=== PATIENT | male | born 1970 | race Caucasian/White ===

== ENCOUNTER 2018-03-19 14:43 | Observation (INO) ==
[2018-03-19] MEDS ORDERED: Ketorolac 30 MG/ML VIAL IVP PRN (17:24)
--- NOTE | 2018-03-19 19:11 | Internal Med History&Physical ---
Date of Encounter: 03/19/18 Time of Encounter: 17:00 Internal Medicine - H&P: HPI Chief complaint: Epigastric pain Admitted From: Home Plans for Post Hospital Care: Home History of present illness: Patient is a 47-year-old male with past medical history significant for IV drug abuse and hypertension who presents from outside ER due to epigastric pain. Patient reports that his pain is located in the epigastric region and describes as sharp, worse with lying down and inspiration with no relieving factors. Patient denies any radiation of the pain or any associated symptoms. In the ER, first set of cardiac biomarkers are negative. Patient was transferred from [facility] for ACS rule out. Past Med Surg Social Fam HX - Past Medical History Medical history: cirrhosis, hypertension, other Psychiatric history: no psych history - Past Surgical History Surgical History: no surgical history - Social History Smoking Status: Current every day smoker Smokeless Tobacco Status: No Alcohol use: occasionally Drug use: none - Family History Sister Living Status: Hx Family Cancer: Yes Internal Medicine - H&P: Meds amLODIPine [Norvasc] 5 mg PO DAILY 10/23/16 [History] hydroCHLOROthiazide [Hydrochlorothiazide] 25 mg PO DAILY 10/23/16 [History] 3 Allergy/AdvReac Type Severity Reaction Status Date / Time No Known Allergies Allergy Verified 01/11/17 19:32 All Systems PM: A 10-system review of systems was performed and is negative for pertinent findings except as documented above in the HPI. - Constitutional Vitals: Temp Pulse Resp BP Pulse Ox 99.3 F 84 16 105/55 99 03/19/18 19:06 03/19/18 19:06 03/19/18 19:06 03/19/18 19:06 03/19/18 19:06 General appearance: Present: A&O X 3, no acute distress - Eye Eye exam: Present: normal appearance - ENT ENT exam: Present: mucous membranes moist - Respiratory Respiratory exam: Present: CTAB. Absent: accessory muscle use, rales, rhonchi, wheezes - Cardiovascular Cardiovascular exam: Present: RRR, +S1, +S2. Absent: diastolic murmur, gallop, rubs, systolic murmur - GI/Abdominal GI/Abdominal exam: Present: soft, tenderness (Epigastric tenderness to palpation ) - Extremities Exam Extremities exam: Absent: pedal edema - Neurological Exam Neurological exam: Present: oriented X3. Absent: no focal deficits - Psychiatric Psychiatric exam: Present: normal mood - Skin Skin exam: Present: normal color - Assessment and plan (1) Chest pain Current Visit: No Status: Acute Assessment and plan: Patient does not report of chest pain but epigastric pain that was sent over for ACS rule out Will trend cardiac biomarkers and monitor on telemetry Will also order stress test for the a.m. her ACS rule out Qualifiers: Chest pain type: other chest pain Qualified Code(s): R07.89 - Other chest pain; R07.8 - Other chest pain (2) HTN (hypertension), benign Current Visit: Yes Status: Acute Assessment and plan: Controlled; continue home medications (3) History of intravenous drug abuse Current Visit: Yes Status: Acute Assessment and plan: Caution with pain medications (4) DVT prophylaxis Current Visit: Yes Status: Acute Assessment and plan: Subcutaneous heparin - Time Spent With Patient Total time spent is greater than 50% in coordination of care (as documented) at patient's floor/unit and/or counseling patient:
[2018-03-19] MEDS ORDERED: Naloxone 0.4 MG/ML INJ IVP PRN (19:15)
[2018-03-19 20:24] LABS: Albumin 3.9 g/dL (3.5-5.7); Albumin/Globulin Ratio 1.2 (1.1-2.2); Bilirubin,Direct 0.1 mg/dL (0.0-0.2); Bilirubin,Indirect 0.4 mg/dL (0.0-1.2); Bilirubin,Total 0.5 mg/dL (0.3-1.0); Globulin 3.3 g/dL (2.4-3.5); Total Protein 7.2 g/dL (6.4-8.9)
[2018-03-19] MEDS ORDERED: Isovue-370 500 ML INFUS..BTL IV ONE (21:11)
--- NOTE | 2018-03-19 21:57 | Event Note ---
Date of Encounter: 03/19/18 Time of Encounter: 21:05 Alerted by pts. nurse ELISA Parra that pt. was complaining of 10/10 epigastric pain and SOB. Went to examine pt. who was sitting upright in bed and SOB/ dyspneic. Pt. stated sx began this morning and have not resolved. Concern for PE. CTA of chest done at [facility] which showed artifact limits evaluation of the distal pulmonary arteries. No evidence of central pulmonary embolism or right heart strain. No evidence of acute process in the chest. Minimal emphysematous changes. D/t artifact, contacted [facility] for clarification on imaging for more definitive r/o for PE. Spoke with Dr. Hernandez who re-evaluated the imaging and determined that the probability of PE to be low, especially based on the pts. current dyspnea which would warrant a noticeable abnormality on imaging. Dr. Hernandez did note on image 38 a right hilar lymph node. Stat D-dimer ordered which showed 989. Stat Dopplers of bilateral LEs ordered to r/o DVT(s). D/t pts. epigastric pain, GI cocktail and IVP Protonix 40 mg BID ordered with both to be administered now. Will change pts. O2 from NC to oxy mask. Pt. also has hx of IV drug abuse, so stat urine tox screen ordered to r/o possible recent drug abuse and/or withdrawal. Pt. will continue to be monitored closely for signs of respiratory and/or cardiac distress. Will await lab results.
[2018-03-19] MEDS: Pantoprazole 40 MG VIAL IVP SCH (22:10)
[2018-03-19] MEDS ORDERED: GI Cocktail 40 ML EACH PO ONE (22:14)
[2018-03-20 00:13] LABS: Amphetamine Screen,Urine Positive ng/mL (Cutoff=1000); Barbiturate Screen,Urine Negative ng/mL (Cutoff=200); Benzodiazepines Screen,Urine Positive ng/mL (Cutoff=200); Cannabinoid Screen,Urine Negative ng/mL (Cutoff = 50); Cocaine Screen,Urine Negative ng/mL (Cutoff= 300); Opiate Screen,Urine Negative ng/mL (Cutoff=300); Phencyclidine Screen,Urine Negative ng/mL (Cutoff=25)
[2018-03-20] MEDS ORDERED: *HR* OxyCODONE/APAP 5/325 TABLET PO ONE (00:59)
[2018-03-20 02:01] LABS: Basophils % 0.5 %; Eosinophils # 0.2 K/mcL (0.0-0.6); Hematocrit 38.5 % (37.5-50.1); Hemoglobin 13.7 g/dL (12.9-16.9); Immature Granulocytes % 0.4 % (0-4); Lymphocytes # 2.3 K/mcL (0.6-4.6); Lymphocytes % 28.1 %; Mean Corpuscular HGB Conc 35.6 g/dL (31.6-35.5); Mean Corpuscular Hemoglobin 30.4 pg (28.0-33.3); Mean Corpuscular Volume 85.6 fL (83.0-100.0); Mean Platelet Volume 10.9 fL (9.4-12.4); Monocytes # 0.9 K/mcL (0.0-1.3); Monocytes % 11.4 %; Neutrophils # 4.7 K/mcL (1.6-8.9); Nucleated Red Blood Cells 0.2 /100 WBC (0); Platelet Count 208 K/mcL (140-400); Red Cell Distribution Width 12.4 % (11.5-14.5); Segmented Neutrophils % 57.6 %
[2018-03-20 02:03] LABS: BUN/Creatinine Ratio 23 (6-26); Blood Urea Nitrogen 17 mg/dL (6-20); Calcium 8.8 mg/dL (8.6-10.3); Carbon Dioxide 22 mEq/L (23-29); Chloride 104 mEq/L (98-107); Glucose 140 mg/dL (70-105); Osmolality,Calculated 278 (280-300); Potassium 3.8 mEq/L (3.5-5.1); Sodium 132 mEq/L (136-145); eGFR For African Americans > 60 (> 60); eGFR For Non-African Americans > 60 (> 60)
[2018-03-20] MEDS ORDERED: Isovue-370 500 ML INFUS..BTL IV ONE (07:36)
[2018-03-20] MEDS ORDERED: Acetaminophen 325 MG TABLET PO PRN (08:44)
[2018-03-20] MEDS: Pantoprazole 40 MG VIAL IVP SCH ×2 (09:30→21:11)
[2018-03-20] MEDS ORDERED: Ketorolac 30 MG/ML VIAL IVP ONE (10:01)
[2018-03-20] MEDS ORDERED: Azithromycin 500 MG in D5% in Water 250 ML IVPB SCH (11:00)
[2018-03-20] MEDS: Ipratropium/Albuterol Neb 3 ML IH SCH ×4 (11:22→23:32)
[2018-03-20] MEDS: cefTRIAXone 1,000 MG in Water for inj. (sterile) 20 ML 10 ML IVP SCH (12:10)
[2018-03-20] MEDS: 0.9 % Sodium Chloride 1,000 ML IVC SCH ×2 (12:10→23:43)
[2018-03-20] MEDS ORDERED: Ketorolac 30 MG/ML VIAL IVP PRN (12:37)
--- NOTE | 2018-03-20 14:31 | Internal Med Progress Note ---
Date of Encounter: 03/20/18 Time of Encounter: 09:35 - Assessment and plan (1) Chest pain Current Visit: Yes Status: Acute Assessment and plan: Patient reports right anterior inferior chest pain and SOB. Pt reports pain increases with inspiration, lying in a supine position, and movement. Pain is not reproducible with palpation. Patient is obviously uncomfortable. Troponins are negative 3. Elevated d-dimer. Chest CTA shows no evidence of PE , new bibasilar infiltrates are identified, greater on the right which may represent atelectasis versus pneumonia. There are no small mediastinal and bilateral hilar lymph nodes noted, likely reactive. Additionally there are left axillary lymph nodes which are also likely reactive. Patient is being treated for community-acquired pneumonia. Stress test was held today due to patient's inability to lie still and in a supine position. If patient has resolution of chest pain with antibiotics and symptomatic treatment, we will not do stress test. Patient has no leukocytosis, no fever, no tachycardia. Blood pressure is stable. He is requiring supplemental oxygen at 2 and 3 L via Oxymizer mask. Patient has no prior history of oxygen use. Continue telemetry Continue 02 as needed to maintain sats > 92% Continue IV antibiotics, bronchodilators, and IV steroids Monitor labs and vitals signs. Pain control Qualifiers: Chest pain type: other chest pain Qualified Code(s): R07.89 - Other chest pain; R07.8 - Other chest pain (2) HTN (hypertension), benign Current Visit: Yes Status: Chronic Assessment and plan: Well controlled. Pt takes HCTZ at home, continue. (3) History of intravenous drug abuse Current Visit: Yes Status: Acute Assessment and plan: Caution with pain medications Urine drug screen positive for Benzodiazepines and amphetamines, neither of which are prescribed to pt. (4) DVT prophylaxis Current Visit: Yes Status: Acute Assessment and plan: Subcutaneous Lovenox. Encourage ambulation and up to chair. (5) Pneumonia Current Visit: Yes Status: Acute Assessment and plan: Plan as above. Community acquired pneumonia, likely bacterial. Blood and sputum cultures ordered and pending. Urine antigens ordered and pending. Qualifiers: Pneumonia type: due to unspecified organism Laterality: bilateral Lung location: lower lobe of lung Qualified Code(s): J18.1 - Lobar pneumonia, unspecified organism - Time Spent With Patient Total time spent is greater than 50% in coordination of care (as documented) at patient's floor/unit and/or counseling patient: less than 15 minutes - Subjective Interval history: Pt was seen and assessed at bedside at 0925. He was obviously uncomfortable and reports right low anterior chest wall pain. He states that pain increases with movement and inspiration, not with palpation. Pt wearing oxygen. Denies headache , n/v/d, abdominal pain, vision changes. - Constitutional Vitals: Temp Pulse Resp BP Pulse Ox 98.2 F 82 18 103/68 99 03/20/18 11:27 03/20/18 11:27 03/20/18 11:27 03/20/18 11:27 03/20/18 11:27 General appearance: Present: cooperative, A&O X 3, severe distress - Head Head exam: Present: atraumatic, normal inspection, normocephalic - Eye Eye exam: Present: normal appearance, conjuntiva pink, sclera anicteric - Neck Neck exam general surgery: Present: supple, trachea midline. Absent: lymphadenopathy, tenderness - Respiratory Respiratory exam: Present: decreased breath sounds, CTAB, wheezes. Absent: accessory muscle use, chest wall tenderness, rales, rhonchi - Cardiovascular Cardiovascular exam: Present: RRR, +S1, +S2, tachycardia. Absent: bradycardia, diastolic murmur, gallop, rubs, systolic murmur - GI/Abdominal GI/Abdominal exam: Present: normal bowel sounds, soft. Absent: distended, hepatomegaly, tenderness - Extremities Exam Extremities exam: Present: normal capillary refill, normal inspection, warm, radial pulses palpable and symmetrical. Absent: calf tenderness, cyanotic, pedal edema - Neurological Exam Neurological exam: Present: alert, oriented X3, no focal deficits. Absent: facial droop, speech deficit - Skin Skin exam: Present: dry, intact, normal color, warm. Absent: rash Internal Medicine: Result - Labs CBC & Chem 7: 03/20/18 01:14 03/20/18 01:14 Labs: Short CBC 03/20/18 Range/Units 01:14 WBC 8.2 (4.3-11.1) K/mcL Hgb 13.7 (12.9-16.9) g/dL Hct 38.5 (37.5-50.1) % Plt Count 208 (140-400) K/mcL Neutrophils # 4.7 (1.6-8.9) K/mcL BMP 03/20/18 01:14 Sodium 132 L Potassium 3.8 Chloride 104 Carbon Dioxide 22 L BUN 17 Creatinine 0.74 Glucose 140 H Calcium 8.8 Cardiac Enzymes 03/19/18 03/20/18 03/20/18 Range/Units 19:33 01:14 07:48 Troponin I < 0.03 < 0.03 < 0.03 (< 0.04) ng/mL Liver Function 03/19/18 Range/Units 19:33 Total Bilirubin 0.5 (0.3-1.0) mg/dL Direct Bilirubin 0.1 (0.0-0.2) mg/dL AST 14 (13-39) Units/L ALT 11 (7-52) Units/L Alkaline Phosphatase 103 (34-104) Units/L Albumin 3.9 (3.5-5.7) g/dL - ABG Interpretation ABG results: PT/INR, D-dimer D-Dimer 989 ng/mLFEU (0-500) H 03/19/18 22:09 - Impressions Impressions Chest CTA 03/20/18 07:36 IMPRESSION: No evidence of pulmonary embolism. New bibasilar infiltrates are identified greater on the right which may represent atelectasis versus pneumonia. Small mediastinal and bilateral hilar lymph nodes are identified likely reactive in nature. Additional left axillary lymph nodes are likely reactive. D/ / 03/20/2018 09:34:28 Isaac Odonnell MD / clint Interpreting Provider: Isaac Odonnell MD Consult Discharge Plan - Plan Referrals: Harry Ricketts MD [Primary Care Provider] -
[2018-03-20] MEDS: Nicotine 21 MG PATCH.TD24 TD SCH (18:12)
[2018-03-20] MEDS: *HR* OxyCODONE/APAP 5/325 TABLET PO PRN (21:11)
[2018-03-21] MEDS: Beer can PO SCH ×3 (00:52→13:05)
[2018-03-21] MEDS: Ipratropium/Albuterol Neb 3 ML IH SCH ×4 (03:44→15:40)
[2018-03-21] MEDS: *HR* OxyCODONE/APAP 5/325 TABLET PO PRN (04:19)
[2018-03-21 05:19] LABS: Basophils % 0.5 %; Eosinophils # 0.2 K/mcL (0.0-0.6); Eosinophils % 2.8 %; Hematocrit 39.1 % (37.5-50.1); Hemoglobin 13.1 g/dL (12.9-16.9); Immature Granulocytes % 0.4 % (0-4); Lymphocytes % 23.5 %; Mean Corpuscular HGB Conc 33.5 g/dL (31.6-35.5); Mean Corpuscular Hemoglobin 29.2 pg (28.0-33.3); Mean Corpuscular Volume 87.3 fL (83.0-100.0); Monocytes # 0.5 K/mcL (0.0-1.3); Monocytes % 6.2 %; Neutrophils # 5.7 K/mcL (1.6-8.9); Platelet Count 211 K/mcL (140-400); Red Blood Count 4.48 M/mcL (4.19-5.50); Red Cell Distribution Width 12.8 % (11.5-14.5); Segmented Neutrophils % 66.6 %
[2018-03-21 05:43] LABS: BUN/Creatinine Ratio 13 (6-26); Blood Urea Nitrogen 10 mg/dL (6-20); Calcium 8.7 mg/dL (8.6-10.3); Carbon Dioxide 23 mEq/L (23-29); Chloride 108 mEq/L (98-107); Glucose 138 mg/dL (70-105); Osmolality,Calculated 287 (280-300); Potassium 3.6 mEq/L (3.5-5.1); Sodium 138 mEq/L (136-145); eGFR For African Americans > 60 (> 60); eGFR For Non-African Americans > 60 (> 60)
[2018-03-21] MEDS ORDERED: *HR* Enoxaparin 40 MG/0.4 ML SYRINGE SQ SCH (07:00)
[2018-03-21] MEDS: cefTRIAXone 1,000 MG in Water for inj. (sterile) 20 ML 10 ML IVP SCH (08:13)
[2018-03-21] MEDS: Pantoprazole 40 MG VIAL IVP SCH (08:14)
[2018-03-21] MEDS: Nicotine 21 MG PATCH.TD24 TD SCH (13:05)
[2018-03-21 15:24] VITALS: BP 147/94
--- NOTE | 2018-03-21 16:12 | Internal Med Progress Note ---
Date of Encounter: 03/21/18 Time of Encounter: 10:05 - Assessment and plan (1) Chest pain Current Visit: Yes Status: Acute Assessment and plan: Patient reports that pain is significantly better today. He is not requiring additional pain medication, but states that pain is still located in the right inferior anterior chest. Continue to treat for pneumonia (CAP) as described below. Stress test was held today due to nicotine patch being used. Patient has no leukocytosis, no fever, no tachycardia. Blood pressure is stable. He is on room air. Continue telemetry Continue 02 as needed to maintain sats > 92% Continue IV antibiotics, bronchodilators, and IV steroids Monitor labs and vitals signs. Pain control Qualifiers: Chest pain type: other chest pain Qualified Code(s): R07.89 - Other chest pain; R07.8 - Other chest pain (2) HTN (hypertension), benign Current Visit: Yes Status: Chronic Assessment and plan: Well controlled. Pt takes HCTZ at home, continue home dose. (3) History of intravenous drug abuse Current Visit: Yes Status: Acute Assessment and plan: Caution with pain medications Urine drug screen positive for Benzodiazepines and amphetamines (4) DVT prophylaxis Current Visit: Yes Status: Acute Assessment and plan: Subcutaneous Lovenox. Pt is ambulatory in the room. (5) Pneumonia Current Visit: Yes Status: Acute Assessment and plan: Plan as above. Community acquired pneumonia, likely bacterial. Pt has improved significantly with IV antibiotics, bronchodilators Sputum culture negative, blood culture still pending Urine antigens ordered and pending. Continue IV antibiotics Continue nebulizer treatments Continue 02 as needed for any other problems or concerns. Continue Guaifeneisin for cough prn Qualifiers: Pneumonia type: due to unspecified organism Laterality: bilateral Lung location: lower lobe of lung Qualified Code(s): J18.1 - Lobar pneumonia, unspecified organism (6) Alcohol abuse Current Visit: Yes Status: Acute Assessment and plan: Pt reports that he drinks approximately 18 beers/day. Pt had not made staff aware of this, no CIWA protocol was ordered on admission. Pt was given 2 beers last night for withdrawl symptoms CIWA protocol now ordered, pt is aware. Monitor for withdrawl symptoms and maintain seizure precautions. - Time Spent With Patient Total time spent is greater than 50% in coordination of care (as documented) at patient's floor/unit and/or counseling patient: less than 15 minutes - Subjective Interval history: Pt was seen and assessed at bedside at 1005. Pt states that he is more comfortable today. Denies need for more pain medication. Pt no longer wearing oxygen. Denies headache, n/v/d, abdominal pain, vision changes. Pt was unable to have stress test today due to nicotine patch not being removed. Pt also reports today that he drinks about 18 beers daily and was given [employer] by vp information technology for withdrawl symptoms. Pt has been on the fence about leaving [facility] or staying since he will not be able to have stress until Friday. Due to his wheezing and MARISCAL, I think it is feasible to keep him for a day or 2 for antibiotics and bronchodilator treatments. - Constitutional Vitals: Temp Pulse Resp BP Pulse Ox 98.9 F 88 18 147/94 98 03/21/18 15:23 03/21/18 15:23 03/21/18 15:41 03/21/18 15:23 03/21/18 15:41 General appearance: Present: cooperative, mild distress, A&O X 3, pleasant, severe distress, answers questions appropriately - Head Head exam: Present: atraumatic, normal inspection, normocephalic - Eye Eye exam: Present: normal appearance, conjuntiva pink, sclera anicteric - Neck Neck exam general surgery: Present: normal inspection, supple, trachea midline. Absent: lymphadenopathy, tenderness - Respiratory Respiratory exam: Present: CTAB. Absent: accessory muscle use, rales, rhonchi, wheezes - Cardiovascular Cardiovascular exam: Present: RRR, +S1, +S2. Absent: diastolic murmur, gallop, rubs, systolic murmur - GI/Abdominal GI/Abdominal exam: Present: normal bowel sounds, soft. Absent: distended, hepatomegaly, tenderness - Extremities Exam Extremities exam: Present: normal capillary refill, normal inspection, warm, radial pulses palpable and symmetrical. Absent: calf tenderness, cyanotic, pedal edema, tenderness - Neurological Exam Neurological exam: Present: alert, oriented X3, no focal deficits. Absent: altered, facial droop, speech deficit - Skin Skin exam: Present: dry, intact, normal color, warm. Absent: rash Internal Medicine: Result - Labs CBC & Chem 7: 03/21/18 04:05 05/12/18 04:05 Labs: Short CBC 03/21/18 Range/Units 04:05 WBC 8.5 (4.3-11.1) K/mcL Hgb 13.1 (12.9-16.9) g/dL Hct 39.1 (37.5-50.1) % Plt Count 211 (140-400) K/mcL Neutrophils # 5.7 (1.6-8.9) K/mcL BMP 03/21/18 04:05 Sodium 138 Potassium 3.6 Chloride 108 H Carbon Dioxide 23 BUN 10 Creatinine 0.79 Glucose 138 H Calcium 8.7 - ABG Interpretation ABG results: PT/INR, D-dimer D-Dimer 989 ng/mLFEU (0-500) H 03/19/18 22:09 Consult Discharge Plan - Plan Referrals: Harry Ricketts MD [Primary Care Provider] -
== END 2018-03-21 16:55 | disposition left against medical advice (07) ==
LOC: 3BNU
PROVIDERS: ADMIT Hospitalist; ATTEND Hospitalist

== ENCOUNTER 2018-03-25 02:48 | Observation (INO) ==
[2018-03-25] MEDS ORDERED: Isovue-370 500 ML INFUS..BTL IV ONE (05:40)
[2018-03-25] MEDS ORDERED: OXYCODONE Oral CONC 10 MG/0.5 ML ORAL.SYG SL PRN (05:46)
[2018-03-25] MEDS ORDERED: Ondansetron 4 MG/2 ML VIAL IVP PRN (05:46)
[2018-03-25] MEDS ORDERED: Naloxone 0.4 MG/ML INJ IVP PRN (05:46)
[2018-03-25] MEDS ORDERED: Acetaminophen 325 MG TABLET PO PRN (05:46)
[2018-03-25] MEDS ORDERED: Albuterol 2.5 MG/3 ML NEBULIZER IH PRN (05:52)
[2018-03-25] MEDS ORDERED: Regadenoson 0.4 MG/5 ML SYRINGE IVP ONE (06:08)
[2018-03-25] MEDS: Ipratropium/Albuterol Neb 3 ML IH SCH ×4 (06:44→21:26)
[2018-03-25] MEDS ORDERED: *HR* LORazepam 2 MG/ML VIAL IVP PRN ×4 (08:37→08:41)
--- NOTE | 2018-03-25 08:47 | Internal Med History&Physical ---
Date of Encounter: 03/25/18 Time of Encounter: 07:00 Internal Medicine - H&P: HPI Chief complaint: "Chest pain" Admitted From: Hospital to Hospital Transfer ([facility]) Plans for Post Hospital Care: Home History of present illness: Mr. Younger is a 47 year old male transferred from [facility] for admission here for chest pain and possible pulmonary embolism. He was recently admitted here for same chest pain. Left AMA because stress test had to be delayed 1 day because nursing staff did not remove nicotine patch. He states pain is in middle chest and does not go anywhere. Nothing makes it better, but lying down makes it worse. He denies SOB. During last hospitalization, he was treated for pneumonia with IV antibiotics and duonebs and improved clinically with above measures. He states to me today "I should have never left." He has no other complaints at this time. Past Med Surg Social Fam HX - Past Medical History Attestation: Yes The following information was validated with the patient. Medical history: cirrhosis, hypertension Psychiatric history: no psych history - Past Surgical History Surgical History: no surgical history - Social History Smoking Status: Current every day smoker Packs per day: 1 Smokeless Tobacco Status: No Alcohol use: heavy Drug use: methamphetamine, IV Drug Use, other - Family History Sister Living Status: Hx Family Cancer: Yes - Additional Family History Additional family history: Family history reviewed with patient Internal Medicine - H&P: Meds amLODIPine [Norvasc] 5 mg PO DAILY 10/23/16 [History] hydroCHLOROthiazide [Hydrochlorothiazide] 25 mg PO DAILY 10/23/16 [History] 3 Allergy/AdvReac Type Severity Reaction Status Date / Time No Known Allergies Allergy Verified 03/25/18 12:18 All Systems PM: A 10-system review of systems was performed and is negative for pertinent findings except as documented above in the HPI. - Constitutional Constitutional: no anorexia, no chills, no fatigue, no fever(s), no falls, no lethargy, no malaise, no weakness, no weight gain, no weight loss - EENT Eyes: no blurry vision, no diplopia, no loss of vision, no pain, no photophobia , no other visual disturbances Ears: no decreased hearing, no ear pain, no tinnitus Nose, mouth and throat: no dry mouth, no dysphagia, no epistaxis, no mouth lesions, no mouth pain, no nasal congestion, no nasal discharge, no neck pain, no sore throat, no throat swelling, no tongue swelling - Cardiovascular Cardiovascular ROS IM: chest pain, no diaphoresis, no dyspnea, no dyspnea on exertion, no edema, no lightheadedness, no orthopnea, no palpitations, no syncope - Respiratory Respiratory: no cough, no dyspnea, no hemoptysis, no wheezing, no chest congestion, no excessive phlegm production - Gastrointestinal Gastrointestinal: no abdominal pain, no belching, no constipation, no cramping, no diarrhea, no dysphagia, no heartburn, no hematemesis, no hematochezia, no loose stools, no melena, no nausea, no vomiting - Genitourinary Genitourinary ROS male: no difficulty urinating, no dysuria, no flank pain, no nocturia, no urinary frequency, no urinary hesitancy, no urinary incontinence, no urinary urgency - Musculoskeletal Musculoskeletal ROS IM: no arthralgias, no back pain, no deformity, no joint swelling, no muscle cramps, no muscle weakness, no myalgias, no numbness, no stiffness - Integumentary Integumentary IM: no erythema, no new lesions, no non-healing lesions, no rash, no skin ulcer, no sores, no jaundice - Neurological Neurological ROS: no abnormal gait, no abnormal hearing, no abnormal movements, no abnormal speech, no confusion, no disequilibrium, no dizziness, no focal weakness, no numbness, no tingling, no vertigo, no weakness - Psychiatric Psychiatric: no anxiety, no confusion, no depression, no irritability, no mood swings - Endocrine Endocrine IM: no cold intolerance, no fatigue, no flushing, no heat intolerance , no polydipsia, no polyphagia, no polyuria - Hematologic/Lymphatic Hematologic/Lymphatic: no easy bleeding, no easy bruising, no lymphadenopathy - Constitutional Vitals: Temp Pulse Resp BP Pulse Ox 98.7 F 79 17 125/86 98 03/25/18 06:47 03/25/18 06:47 03/25/18 06:47 03/25/18 06:47 03/25/18 06:47 General appearance: Present: cooperative, A&O X 3, pleasant, no acute distress, answers questions appropriately - Head Head exam: Present: atraumatic, normal inspection, normocephalic - Eye Eye exam: Present: EOMI, normal appearance, PERRL. Absent: conjunctival injection, nystagmus, scleral icterus - ENT ENT exam: Absent: mucous membranes moist, normal external ear exam, normal oropharynx - Neck Neck exam general surgery: Present: full ROM, supple, trachea midline. Absent: lymphadenopathy, normal inspection, tenderness, thyromegaly - Respiratory Respiratory exam: Present: CTAB. Absent: accessory muscle use, rales, rhonchi, wheezes Additional comments: Normal WOB - Cardiovascular Cardiovascular exam: Present: RRR, +S1, +S2. Absent: diastolic murmur, gallop, rubs, systolic murmur Additional comments: No BLE edema - GI/Abdominal GI/Abdominal exam: Present: normal bowel sounds, soft. Absent: distended, hepatomegaly, mass, splenomegaly, tenderness - Neurological Exam Neurological exam: Present: alert, CN II-XII intact, oriented X3, no focal deficits, strengths equal and symetr throughout. Absent: motor sensory deficit , facial droop, speech deficit - Psychiatric Psychiatric exam: Present: normal affect, normal mood. Absent: agitated, anxious, depressed - Skin Skin exam: Present: intact. Absent: cyanosis, dry, rash, warm Internal Med - H&P Results - Labs Labs: Cardiac Enzymes 03/25/18 Range/Units 06:25 Troponin I < 0.03 (< 0.04) ng/mL - Assessment and plan (1) Chest pain Current Visit: No Status: Acute Assessment and plan: Came in with ACS symptoms, had stress scheduled, but left AMA because had to delay stress for having nicotine patch on. Will defer nicotine and caffeine for now and make NPO. [place]le stress test for AM. Order any other ACS workup in morning, and cnsult cardiology if necssary. Supplemental O2, nitro, and opioids if necessary, but try to defer due to IVDU history. He is not in any distress right now. Will monitor closely on telemetry. Qualifiers: Chest pain type: precordial pain Qualified Code(s): R07.2 - Precordial pain (2) Pneumonia Current Visit: No Status: Acute Assessment and plan: Was treated for this last admission less than a week ago and improved clinically. He cannot tell me what he was treated with, and he left AMA. Will start IV levaquin for now and duonebs scheduled. Recheck CBC in AM and monitor closely. Qualifiers: Pneumonia type: due to unspecified organism Laterality: bilateral Lung location: lower lobe of lung Qualified Code(s): J18.1 - Lobar pneumonia, unspecified organism (3) HTN (hypertension), benign Current Visit: No Status: Chronic Assessment and plan: Continue home medications. BP normal now. NPO for stress tomorrow. Advised nurse to call me for elevated BP. (4) DVT prophylaxis Current Visit: No Status: Acute Assessment and plan: SCDs for now. Consider anticoagulation tomorrow. - Time Spent With Patient Total time spent is greater than 50% in coordination of care (as documented) at patient's floor/unit and/or counseling patient:
--- NOTE | 2018-03-25 08:54 | Event Note ---
Date of Encounter: 03/25/18 Time of Encounter: 08:45 Seen and examined at bedside, patient is new to me. Information obtained from chart review and patient report. Says he was transferred from [facility] for further evaluation of chest pain and shortness of breath. Continues to have intermittent shortness of breath and chest pain however not on exam. He does feel he is in mild alcohol withdrawal. General appearance: Present: A&O X 3, morbidly obese, mild distress - Head Head exam: Present: atraumatic, normocephalic - Eye Eye exam: Present: PERRL, conjuntiva pink, sclera anicteric Pupils: Present: PERRL - Neck Neck exam general surgery: Present: supple, trachea midline. Absent: lymphadenopathy - Respiratory Respiratory exam: Present: CTAB, wheezes. Absent: accessory muscle use, rales, rhonchi - Cardiovascular Cardiovascular exam: Present: RRR, +S1, +S2. Absent: diastolic murmur, gallop, rubs, systolic murmur - GI/Abdominal GI/Abdominal exam: Present: normal bowel sounds, soft, no peritoneal signs. Absent: distended, tenderness - Extremities Exam Extremities exam: Present: warm, radial pulses palpable and symmetrical. Absent : calf tenderness, cyanotic, pedal edema - Neurological Exam Neurological exam: Present: CN II-XII intact, oriented X3, no focal deficits. Absent: pronater drift, facial droop, speech deficit - Skin Skin exam: Present: dry, intact (1) Chest pain recurrent. Recently hospitalized for similar symptoms and left AMA. Now presented to outside hospital with recurrent chest pain and shortness of breath. Troponin 2 negative. No EKG available for review. D-dimer 3049. Stress test, chest CTA pending. Cont therapeutic Lovenox (2) HTN (hypertension), benign per hx. BP controlled. Cont home BP medications. (3) History of intravenous drug abuse per hx. Recent frug screen positive for and Zosyn and amphetamines. UDS pending. (4) Alcohol abuse Known history of alcoholism; drinks approximately 18-24 beers/day. Monitor with [facility]
[2018-03-25] MEDS: Levofloxacin 750 MG/150 ML 750 MG/150 ML BAG IVPB SCH (11:36)
[2018-03-25] MEDS: OXYCODONE Oral CONC 10 MG/0.5 ML ORAL.SYG SL PRN ×2 (12:21→18:44)
[2018-03-25 12:45] LABS: Amphetamine Screen,Urine Positive ng/mL (Cutoff=1000); Barbiturate Screen,Urine Negative ng/mL (Cutoff=200); Benzodiazepines Screen,Urine Positive ng/mL (Cutoff=200); Cannabinoid Screen,Urine Negative ng/mL (Cutoff = 50); Cocaine Screen,Urine Positive ng/mL (Cutoff= 300); Opiate Screen,Urine Negative ng/mL (Cutoff=300); Phencyclidine Screen,Urine Negative ng/mL (Cutoff=25)
[2018-03-25] MEDS ORDERED: *HR* Enoxaparin 100 MG/ML SYRINGE SQ SCH (18:00)
[2018-03-25] MEDS ORDERED: Thiamine (B-1) 100 MG, Folic Acid 1 MG, MVI, adult with vitamin K 10 ML in 0.9 % Sodi... IVPB SCH (18:00)
[2018-03-26] MEDS: OXYCODONE Oral CONC 10 MG/0.5 ML ORAL.SYG SL PRN (00:19)
[2018-03-26] MEDS: Ipratropium/Albuterol Neb 3 ML IH SCH ×2 (04:25→10:15)
[2018-03-26 04:31] LABS: Basophils # 0.1 K/mcL (0.0-0.2); Basophils % 0.8 %; Eosinophils # 0.4 K/mcL (0.0-0.6); Eosinophils % 5.7 %; Immature Granulocytes % 0.3 % (0-4); Lymphocytes # 1.9 K/mcL (0.6-4.6); Lymphocytes % 31.5 %; Mean Corpuscular HGB Conc 35.1 g/dL (31.6-35.5); Mean Corpuscular Volume 85.5 fL (83.0-100.0); Mean Platelet Volume 10.2 fL (9.4-12.4); Monocytes # 0.8 K/mcL (0.0-1.3); Monocytes % 12.8 %; Platelet Count 225 K/mcL (140-400); Red Blood Count 4.33 M/mcL (4.19-5.50); Segmented Neutrophils % 48.9 %
[2018-03-26 04:44] LABS: Alanine Aminotransferase 12 Units/L (7-52); Albumin 3.6 g/dL (3.5-5.7); Albumin/Globulin Ratio 1.1 (1.1-2.2); Alkaline Phosphatase 85 Units/L (34-104); Aspartate Amino Transferase 14 Units/L (13-39); BUN/Creatinine Ratio 23 (6-26); Bilirubin,Total 0.4 mg/dL (0.3-1.0); Blood Urea Nitrogen 19 mg/dL (6-20); Calcium 8.7 mg/dL (8.6-10.3); Carbon Dioxide 26 mEq/L (23-29); Chloride 102 mEq/L (98-107); Globulin 3.4 g/dL (2.4-3.5); Glucose 106 mg/dL (70-105); Osmolality,Calculated 279 (280-300); Potassium 3.9 mEq/L (3.5-5.1); Sodium 133 mEq/L (136-145); eGFR For African Americans > 60 (> 60); eGFR For Non-African Americans > 60 (> 60)
[2018-03-26] MEDS: Levofloxacin 750 MG/150 ML 750 MG/150 ML BAG IVPB SCH (10:01)
--- NOTE | 2018-03-26 11:00 | Discharge Summary ---
Orders not resulted at time of discharge: Pending orders 03/25/18 05:43 EKG [ECG 12 lead ECG] [ECG] Stat 03/25/18 08:00 NM tomy perf SPECT multi [NM] Routine Date of Encounter: 03/26/18 Time of Encounter: 10:53 - Discharge Diagnosis (1) Chest pain Priority: Primary Status: Resolved Assessment and Plan: presented with chest pain. Recenly admitted for similar symptoms and stress test was scheduled however he left AMA because stress test had to be delayed for having nicotine patch on. D-dimer elevated. Chest CTA negative for pulmonary embolism. Stress test with mild perfusion defect appeared to improve with stress consistent with artifact. Pharmacologic stress EKG negative for ischemia. Suspect chest pain musculoskeletal as symptoms worse with position change. Chest pain also could be secondary to illicit drug use. No further cardiac workup indicated at this time. Qualifiers: Chest pain type: precordial pain Qualified Code(s): R07.2 - Precordial pain (2) HTN (hypertension), benign Priority: Secondary Status: Chronic Assessment and Plan: per hx. BP controlled. Continue home BP medication. (3) Pneumonia Priority: Secondary Status: Acute Assessment and Plan: treated for this last admission less than a week ago and improved clinically. Chest CTA with atelectasis, no evidence of infiltrate/opacity. Afebrile, no tachycardia or hypotension. Clinically did not appear to be pneumonia. Qualifiers: Pneumonia type: due to unspecified organism Laterality: bilateral Lung location: lower lobe of lung Qualified Code(s): J18.1 - Lobar pneumonia, unspecified organism (4) Polysubstance abuse Priority: Primary Status: Acute Assessment and Plan: per hx. UDS positive for amphetamines, benzodiazepines and cocaine. All likely contributing to chest pain. Cessation strongly encouraged but not likely. (5) Abscess Priority: Primary Status: Acute Assessment and Plan: to left forearm. Secondary to IV drug abuse. Evaluated by general surgery who did not recommend I&D however patient refused (will encourage patient to have abscess lanced to avoid readmission however he continued to refuse). Strongly encouraged IV drug use cessation. Discharge home on doxycycline. (6) Alcohol abuse Priority: Primary Status: Acute Assessment and Plan: per hx. daily drinker signs: Patient reported drinking 18-24 beers per day. Last drink on day of arrival. Monitor with [facility]. Alcohol cessation encouraged but not likely. Hospital course: Please see assessment and plan for Hospital course Discharge discussed with: patient (Seen and examined at bedside. Patient says he feels better and wants to be discharge home today. Says he has chest pain only when he bends over or turns certain positions. No shortness of breath. Abscess to left forearm noted on exam fluctuants. Patient was initially agreeable to IND however when he was evaluated by Gen. surgery [facility] he refused. I strongly encouraged patient to stay and have abscess lanced to avoid readmission however he continued to refuse. Encouraged alcohol and drug cessation as well.) - Time Spent with Patient Total time spent providing and/or coordinating discharge services: - Discharge Medications Prescriptions: Doxycycline 100 mg PO BID #14 capsule Home Medications: amLODIPine [Norvasc] 5 mg PO DAILY 10/23/16 [History] hydroCHLOROthiazide [Hydrochlorothiazide] 25 mg PO DAILY 10/23/16 [History] Doxycycline 100 mg PO BID #14 capsule 03/26/18 [Rx] Allergies/Adverse Reactions: 3 Allergy/AdvReac Type Severity Reaction Status Date / Time No Known Allergies Allergy Verified 03/25/18 12:18 Date of admission: 03/25/18 03:56 Primary care physician: Harry Ricketts MD Discharging clinician: Terri Schneider Anticipated date of discharge: 03/26/18 - Constitutional Vitals: Temp Pulse Resp BP Pulse Ox 99.6 F 88 18 108/62 96 03/26/18 06:59 03/26/18 06:59 03/26/18 06:59 03/26/18 06:59 03/26/18 06:59 General appearance: Present: cooperative, A&O X 3, pleasant, no acute distress, answers questions appropriately - Head Head exam: Present: atraumatic, normocephalic - Eye Eye exam: Present: PERRL, conjuntiva pink, sclera anicteric Pupils: Present: PERRL - Neck Neck exam general surgery: Present: supple, trachea midline. Absent: lymphadenopathy - Respiratory Respiratory exam: Present: CTAB. Absent: accessory muscle use, rales, rhonchi, wheezes - Cardiovascular Cardiovascular exam: Present: RRR, +S1, +S2. Absent: diastolic murmur, gallop, rubs, systolic murmur - GI/Abdominal GI/Abdominal exam: Present: normal bowel sounds, soft, no peritoneal signs. Absent: distended, tenderness - Extremities Exam Extremities exam: Present: warm, radial pulses palpable and symmetrical. Absent : calf tenderness, cyanotic, pedal edema - Neurological Exam Neurological exam: Present: CN II-XII intact, oriented X3, no focal deficits. Absent: pronater drift, facial droop, speech deficit - Skin Skin exam: Present: dry, intact Additional comments: Abscess to left forearm with area of fluctuance, no active drainage. - Patient Status Disposition: Home, Self-Care Condition: Good Functional capacity at discharge: independent ambulation Overall status at discharge: patient is back to baseline - Discharge Instructions Instructions: Benzodiazepine Abuse (DC), Methamphetamine Abuse, Rhit (GEN), Cocaine Abuse (DC), Doxycycline (By mouth) Follow Up With: Ankit Cifuentes MD [Partnered Physician] - - Diet and Activity Activity: increase activity as tolerated Diet: advance to your usual diet
[2018-03-26 11:11] VITALS: BP 112/72
== END 2018-03-26 12:10 | disposition home or self-care (01) ==
LOC: 3BNU
PROVIDERS: ADMIT Family Medicine; ATTEND Family Medicine